=== PATIENT | male | born 1935 | race Caucasian/White ===

== ENCOUNTER 2021-06-03 09:04 | Day surgery (SDC) | payer OTHER ==
[~2021-06-03] VITALS: Ht 180.3 cm; Wt 119.6 kg
[2021-06-03] MEDS ORDERED: VANCOMYCIN 1,500MG inj. 1,500 MG in normal saline 500ml IV soln 500 ML IV ONE (09:45)
[2021-06-03] MEDS ORDERED: BUPR300T86 PO (10:09)
[2021-06-03] MEDS ORDERED: ARMO150T6 PO (10:09)
[2021-06-03] MEDS ORDERED: EPLE25TA4 PO (10:09)
[2021-06-03] MEDS ORDERED: CITA40TA17 PO (10:09)
[2021-06-03] MEDS ORDERED: FLUT15.815 (10:09)
[2021-06-03] MEDS ORDERED: ATOR20TA PO (10:09)
[2021-06-03] MEDS ORDERED: WARF6TAB49 PO (10:09)
[2021-06-03] MEDS ORDERED: LIDOcaine 1% (10mg/ml)w/preservative injection 20ml MDV ONE (10:15)
[2021-06-03] MEDS ORDERED: vancomycin 1,000mg inj ONE (10:15)
[2021-06-03] MEDS ORDERED: fentaNYL/PF 50MCG/1 ML 2ML syringe ONE (10:15)
[2021-06-03] MEDS ORDERED: midazolam 1 mg/ML 2ml injection ONE ×2 (10:15→10:58)
[2021-06-03 10:20] LABS: BASOPHILS # (AUTO) 0.1 X10'3 (0-0.2); BASOPHILS % (AUTO) 0.8 % (0-1); EOSINOPHILS # (AUTO) 0.2 X10'3 (0-0.9); EOSINOPHILS % (AUTO) 3.9 % (0-6); HEMATOCRIT 43.8 % (42.0-52.0); HEMOGLOBIN 14.9 g/dl (14.0-17.9); LYMPHOCYTES # (AUTO) 1.4 X10'3 (1.1-4.8); LYMPHOCYTES % (AUTO) 22.1 % (21-51); MEAN CORPUSCULAR HEMOGLOBIN 32.5 PG (27.0-31.0); MEAN CORPUSCULAR HGB CONC 34.1 g/dL (33.0-36.5); MEAN CORPUSCULAR VOLUME 95.2 FL (78-98); MEAN PLATELET VOLUME 8.3 FL (7.4-10.4); MONOCYTES # (AUTO) 0.8 X10'3 (0-0.9); MONOCYTES % (AUTO) 12.3 % (2-12); NEUTROPHILS # (AUTO) 3.8 X10'3 (1.8-7.7); NEUTROPHILS % (AUTO) 60.9 % (42-75); PLATELET COUNT 171 X10'3 (140-440); RED CELL DISTRIBUTION WIDTH 14.6 % (11.5-14.5); WHITE BLOOD COUNT 6.2 X10'3 (4.5-11.0)
[2021-06-03 10:22] LABS: ALBUMIN 3.4 G/DL (3.4-5.0); ANION GAP 9 (8-16); BLOOD UREA NITROGEN 21 MG/DL (7-18); BUN/CREATININE RATIO 22.1 (5.4-32.0); CALCIUM 8.8 MG/DL (8.5-10.1); CHLORIDE 106 MMOL/L (99-107); CREATININE 0.95 MG/DL (0.60-1.10); GLUCOSE 118 MG/DL (70-104); MAGNESIUM 1.9 MG/DL (1.5-2.4); POTASSIUM 4.4 MMOL/L (3.5-5.1); SODIUM 144 MMOL/L (135-145); TOTAL CARBON DIOXIDE 28.6 MMOL/L (24-32); eGFR 76 ML/MIN
[2021-06-03] MEDS ORDERED: LIDOcaine 1% W/epiNEPHrine 1:100,000 20ml vial ONE (10:52)
[2021-06-03 11:48] VITALS: BP 142/65
[2021-06-03] MEDS ORDERED: normal saline 1000ml 1,000 ML IV SCH (12:05)
[2021-06-03 12:17] VITALS: BP 149/62
[2021-06-03 12:30] VITALS: BP 124/82
[2021-06-03 12:45] VITALS: BP 129/67
[2021-06-03 13:00] VITALS: BP 102/54
== END 2021-06-03 13:30 | disposition home or self-care (01) ==
LOC: SSTAY O 09:04
PROVIDERS: ATTEND Internal Medicine Cardiovascular Disease
DX: Z45.02 Encounter for adjustment and management of automatic implantable cardiac defibrillator (principal); I42.0 Dilated cardiomyopathy; I48.91 Unspecified atrial fibrillation; G47.30 Sleep apnea, unspecified; I48.20 Chronic atrial fibrillation, unspecified; Z79.01 Long term (current) use of anticoagulants; Z90.79 Acquired absence of other genital organ(s); Z98.890 Other specified postprocedural states; Z79.899 Other long term (current) drug therapy; Z80.49 Family history of malignant neoplasm of other genital organs; Z80.1 Family history of malignant neoplasm of trachea, bronchus and lung; Z88.8 Allergy status to other drugs, medicaments and biological substances
CPT/HCPCS: 33264; 36415; 80048; 83735; 85025; 85610; 93005; 99152; 99153; C1882; C1894; J2001; J2250; J3010; J3370; J7030; A4620; A6258

== ENCOUNTER 2022-02-17 07:18 | Day surgery (SDC) | payer OTHER ==
[~2022-02-17] VITALS: Ht 177.8 cm; Wt 122.1 kg
[2022-02-17] VITALS (7 sets, daily range): BP systolic 131–157; BP diastolic 63–83
[~2022-02-17 07:18] MED LIST: ARMO150T6 PO; ATOR20TA PO; BUPR300T86 PO; CITA40TA17 PO; EPLE25TA4 PO; FLUT15.815; WARF6TAB49 PO
[2022-02-17] MEDS ORDERED: cefazolin/dext.iso 2gm/100ml 100 ML IV ONE (07:40)
[2022-02-17] MEDS ORDERED: LOTE5DRO4 (08:10)
[2022-02-17] MEDS ORDERED: WARF-55 PO (08:10)
[2022-02-17] MEDS ORDERED: SOLR150T PO (08:14)
[2022-02-17 08:35] LABS: BASOPHILS # (AUTO) 0.1 X10'3 (0-0.2); BASOPHILS % (AUTO) 0.9 % (0-1); EOSINOPHILS # (AUTO) 0.2 X10'3 (0-0.9); EOSINOPHILS % (AUTO) 2.9 % (0-6); HEMATOCRIT 42.3 % (42.0-52.0); HEMOGLOBIN 14.3 g/dl (14.0-17.9); LYMPHOCYTES # (AUTO) 1.5 X10'3 (1.1-4.8); LYMPHOCYTES % (AUTO) 23.3 % (21-51); MEAN CORPUSCULAR HEMOGLOBIN 33.3 PG (27.0-31.0); MEAN CORPUSCULAR HGB CONC 33.8 g/dL (33.0-36.5); MEAN CORPUSCULAR VOLUME 98.4 FL (78-98); MEAN PLATELET VOLUME 8.8 FL (7.4-10.4); MONOCYTES # (AUTO) 0.9 X10'3 (0-0.9); MONOCYTES % (AUTO) 12.9 % (2-12); PLATELET COUNT 183 X10'3 (140-440); RED CELL DISTRIBUTION WIDTH 13.8 % (11.5-14.5); WHITE BLOOD COUNT 6.6 X10'3 (4.5-11.0)
[2022-02-17 08:46] LABS: ALBUMIN 3.6 G/DL (3.4-5.0); ANION GAP 6 (8-16); BLOOD UREA NITROGEN 23 MG/DL (7-18); BUN/CREATININE RATIO 25.3 (5.4-32.0); CHLORIDE 108 MMOL/L (99-107); CREATININE 0.91 MG/DL (0.60-1.10); GLUCOSE 103 MG/DL (70-104); MAGNESIUM 1.9 MG/DL (1.5-2.4); SODIUM 143 MMOL/L (135-145); TOTAL CARBON DIOXIDE 28.7 MMOL/L (24-32); eGFR 79 ML/MIN
[2022-02-17] MEDS ORDERED: fentaNYL/PF 50MCG/1 ML 2ML syringe ONE (09:00)
[2022-02-17] MEDS ORDERED: midazolam 1 mg/ML 2ml injection ONE ×2 (09:00→09:46)
[2022-02-17] MEDS ORDERED: vancomycin 1,000mg inj ONE (09:01)
[2022-02-17] MEDS ORDERED: LIDOCAINE 2% w/EPI 1:100:000 30mL injection MDV**cath lab 1 only ONE (09:01)
[2022-02-17] MEDS ORDERED: iohexol 350MG/ML 100ml bottle IV ONE (09:01)
[2022-02-17] MEDS ORDERED: normal saline 1000ml 1,000 ML IV SCH (10:35)
== END 2022-02-17 12:30 | disposition home or self-care (01) ==
LOC: SSTAY O 07:18
PROVIDERS: ATTEND Internal Medicine Cardiovascular Disease
DX: I82.B22 Chronic embolism and thrombosis of left subclavian vein (principal); I42.9 Cardiomyopathy, unspecified; Z95.0 Presence of cardiac pacemaker; I48.20 Chronic atrial fibrillation, unspecified; G47.30 Sleep apnea, unspecified; Z98.890 Other specified postprocedural states; Z79.01 Long term (current) use of anticoagulants; Z79.899 Other long term (current) drug therapy; Z88.8 Allergy status to other drugs, medicaments and biological substances
CPT/HCPCS: 36005; 36415; 75820; 80048; 83735; 85025; 85610; 93005; 93971; 99152; C1894; J2250; J3010; J3370; J3490; J7030; Q9967; 36215; A4620; A6258

== ENCOUNTER 2022-03-17 06:10 | Inpatient (IN) | payer OTHER ==
[2022-03-13 14:31] LABS: BASOPHILS % (AUTO) 0.3 % (0-1); EOSINOPHILS # (AUTO) 0.1 X10'3 (0-0.9); EOSINOPHILS % (AUTO) 2.2 % (0-6); LYMPHOCYTES # (AUTO) 1.1 X10'3 (1.1-4.8); LYMPHOCYTES % (AUTO) 17.8 % (21-51); MEAN CORPUSCULAR HGB CONC 33.7 g/dL (33.0-36.5); MEAN CORPUSCULAR VOLUME 100.9 FL (78-98); MEAN PLATELET VOLUME 8.5 FL (7.4-10.4); MONOCYTES # (AUTO) 0.7 X10'3 (0-0.9); MONOCYTES % (AUTO) 11.6 % (2-12); NEUTROPHILS # (AUTO) 4.1 X10'3 (1.8-7.7); NEUTROPHILS % (AUTO) 68.1 % (42-75); PRE OP HEMATOCRIT 42.8 % (42.0-52.0); PRE OP HEMOGLOBIN 14.4 g/dL (14.0-17.9); PRE OP PLATELET COUNT 156 X10'3 (140-440); RED BLOOD COUNT 4.25 X10'6 (4.70-6.10)
[2022-03-13 14:52] LABS: ALBUMIN 3.5 G/DL (3.4-5.0); ALKALINE PHOSPHATASE 72 IU/L (46-116); BLOOD UREA NITROGEN 25 MG/DL (7-18); BUN/CREATININE RATIO 28.7 (5.4-32.0); CALCIUM 8.6 MG/DL (8.5-10.1); CHLORIDE 109 MMOL/L (99-107); CREATININE 0.87 MG/DL (0.60-1.10); PRE OP ALT 37 U/L (30-65); PRE OP ANION GAP 6 (8-16); PRE OP AST 23 U/L (10-37); PRE OP BILIRUB, TOTAL 0.7 MG/DL (0.0-1.0); PRE OP GLUCOSE 114 MG/DL (70-104); PRE OP POTASSIUM 4.3 MMOL/L (3.4-5.1); PRE OP SODIUM 141 MMOL/L (135-145); TOTAL CARBON DIOXIDE 26.2 MMOL/L (24-32); TOTAL PROTEIN 6.9 G/DL (6.4-8.2); eGFR 83 ML/MIN
[2022-03-17] VITALS (18 sets, daily range): BP systolic 132–149; BP diastolic 69–85
[~2022-03-17] VITALS: Ht 180.3 cm; Wt 121.0 kg
[~2022-03-17 06:10] MED LIST changes: -ARMO150T6 PO; -EPLE25TA4 PO; -FLUT15.815; +SOLR150T PO; +WARF-55 PO; -WARF6TAB49 PO; +ceFAZolin inj. 2,000 MG in dextrose 5%-water 100 ML IV ONE; +famotidine 20mg tablet PO ONE; +mupirocin 2% nasal ointment 1gm UD NS ONE; +ringers solution, lacted 1,000 ML IV SCH
[2022-03-17] MEDS ORDERED: LIDOcaine 1% (10mg/ml) 2ml vial ONE (06:25)
[2022-03-17] MEDS ORDERED: BUPIVAcaine/PF 2.5mg/ml (0.25%) 10ml vial ONE (06:47)
[2022-03-17 07:27] LABS: PRE OP PARTIAL THROMB. TIME 27 SECONDS (22-32)
[2022-03-17] MEDS ORDERED: desflurane 240ml liquid inh. IH ONE (07:48)
[2022-03-17] MEDS ORDERED: glycopyrrolate 0.2mg/ml inj ONE (07:48)
[2022-03-17] MEDS ORDERED: acetaminophen 1000 MG/100ml vial IV ONE (07:48)
[2022-03-17] MEDS ORDERED: ondansetron/PF 4mg/2ml inj ONE (07:48)
[2022-03-17] MEDS ORDERED: neostigmine methylsulfate 1 MG/ML 10ml vial ONE (07:48)
[2022-03-17] MEDS ORDERED: rocuronium 10mg/ml inj IV ONE ×2 (07:48→08:29)
[2022-03-17] MEDS ORDERED: midazolam 1 mg/ML 2ml injection ONE (07:52)
[2022-03-17] MEDS ORDERED: fentaNYL /PF 50mcg/ml 5ml ampule ONE (07:52)
[2022-03-17] MEDS ORDERED: ePHEDrine 50MG/ML INJ. ONE (08:28)
[2022-03-17] MEDS ORDERED: etomidate 2mg/ml inj. ONE (08:29)
[2022-03-17] MEDS ORDERED: NORMAL SALINE IV STA (08:54)
[2022-03-17] MEDS ORDERED: VANCOMYCIN IV STA (08:54)
[2022-03-17] MEDS ORDERED: LIDOcaine 1%/PF 5ML 10 MG/ML VIAL ONE ×2 (08:56)
[2022-03-17] MEDS ORDERED: ceFAZolin 1000mg inj IR ONE (09:23)
[2022-03-17] MEDS ORDERED: ceFAZolin 1000mg inj ONE (09:37)
[2022-03-17] MEDS ORDERED: dexamethasone sod phosphate 4mg/ml inj. ONE (09:42)
[2022-03-17] MEDS ORDERED: sugammadex 200mg/2ml injection IV ONE (09:44)
[2022-03-17] MEDS ORDERED: magnesium hydroxide 30ml (MOM) UD suspension PO PRN (09:50)
[2022-03-17] MEDS ORDERED: morphine 4 MG/ML inj SYRINge IV PRN (09:50)
[2022-03-17] MEDS ORDERED: HYDROcodone/acetaminophen 10/325mg tab PO PRN ×2 (09:50)
[2022-03-17] MEDS ORDERED: ondansetron/PF 4mg/2ml inj IV PRN (09:50)
[2022-03-17] MEDS ORDERED: albuterol 2.5 MG/3 ML nebule NEB PRN (09:50)
[2022-03-17] MEDS ORDERED: morphine 2 MG/ML inj. syringe IV PRN (09:50)
[2022-03-17] MEDS ORDERED: metoclopramide 5 mg/ml inj IV PRN (09:50)
--- NOTE | 2022-03-17 10:05 | NUR ---
Received from OR via , accompanied by Anesthesiologist and report given by Anesthesiolgist. PATIENT A&OX4, DENIES PAIN, V/S WNL, SCD ON , PIV 20G RUE AND ART LINE, DERMABONDED AND STERI STRIP TO CHEST SURGICAL SITES CLOSED CDI T
--- NOTE | 2022-03-17 10:55 | NUR ---
PATIENT A&OX4, DENIES PAIN, V/S WNL, SCD ON ,CL RIJ, PIV 20G RUE AND ART LINE D/C, DERMABONDED AND STERI STRIP TO CHEST SURGICAL SITES CLOSED CDI. PATIENT TAKEN TO 3012A WITH ALL BELONGINGS AND HOOKED UP TO MONITORS IN ROOM AND TELE AND REPORT GIVEN TO ALTERATIONS SUPERVISOR WHO HAS TAKEN OVER PATIENT CARE.
[2022-03-17] MEDS: ceFAZolin inj. 1,000 MG in dextrose 5%-water 50ml 50 ML IV SCH (17:25)
--- NOTE | 2022-03-17 18:04 | NUR ---
Pt refused 1700 BG check - education provided. Pt understood
[2022-03-17] MEDS: docusate sod 100mg capsule PO SCH (20:37)
[2022-03-17] MEDS: gabapentin 300mg capsule PO SCH (20:37)
[2022-03-17] MEDS: buPROPion SR 150mg tablet PO SCH (20:37)
[2022-03-17] MEDS ORDERED: atorvastatin 20mg tablet PO SCH (21:00)
[2022-03-17] MEDS ORDERED: citalopram 20mg tablet PO SCH (21:00)
[2022-03-17] MEDS ORDERED: warfarin 5mg tablet PO SCH (21:00)
[2022-03-18] MEDS: ceFAZolin inj. 1,000 MG in dextrose 5%-water 50ml 50 ML IV SCH (00:22)
[2022-03-18 02:00] VITALS: BP 136/67
[2022-03-18 06:00] VITALS: BP 145/65
--- NOTE | 2022-03-18 06:00 | NUR ---
Patient in room PCU 3013. I have received report from BHAVANI Rausch and had the opportunity to ask questions and assume patient care.
[2022-03-18 06:17] LABS: BASOPHILS % (AUTO) 0.2 % (0-1); EOSINOPHILS % (AUTO) 0 % (0-6); HEMATOCRIT 41.1 % (42.0-52.0); LYMPHOCYTES # (AUTO) 0.6 X10'3 (1.1-4.8); LYMPHOCYTES % (AUTO) 5.6 % (21-51); MEAN CORPUSCULAR HEMOGLOBIN 33.9 PG (27.0-31.0); MEAN CORPUSCULAR VOLUME 99.7 FL (78-98); MEAN PLATELET VOLUME 9.4 FL (7.4-10.4); MONOCYTES # (AUTO) 0.9 X10'3 (0-0.9); MONOCYTES % (AUTO) 7.7 % (2-12); NEUTROPHILS # (AUTO) 9.8 X10'3 (1.8-7.7); NEUTROPHILS % (AUTO) 86.5 % (42-75); PLATELET COUNT 164 X10'3 (140-440); RED BLOOD COUNT 4.12 X10'6 (4.70-6.10); WHITE BLOOD COUNT 11.3 X10'3 (4.5-11.0)
[2022-03-18 06:19] LABS: ALANINE AMINOTRANSFERASE 36 U/L (12-78); ALBUMIN 3.2 G/DL (3.4-5.0); ALBUMIN/GLOBULIN RATIO 0.9 (1.1-1.5); ALKALINE PHOSPHATASE 69 IU/L (46-116); ANION GAP 8 (8-16); ASPARTATE AMINO TRANSFERASE 24 U/L (10-37); BILIRUBIN,TOTAL 0.8 MG/DL (0.1-1.0); BLOOD UREA NITROGEN 19 MG/DL (7-18); BUN/CREATININE RATIO 16.8 (5.4-32.0); CALCIUM 8.8 MG/DL (8.5-10.1); CHLORIDE 106 MMOL/L (99-107); CREATININE 1.13 MG/DL (0.60-1.10); GLUCOSE 178 MG/DL (70-104); POTASSIUM 4.9 MMOL/L (3.5-5.1); SODIUM 139 MMOL/L (135-145); TOTAL CARBON DIOXIDE 25.3 MMOL/L (24-32); TOTAL PROTEIN 6.6 G/DL (6.4-8.2); eGFR 62 ML/MIN
[2022-03-18] MEDS ORDERED: SOLRIAMFETOL HCL 150 MG PO SCH (08:00)
[2022-03-18] MEDS ORDERED: HYDR-3972 PO (08:22)
[2022-03-18] MEDS ORDERED: furosemide 40mg/4ml inj IV ONE (08:30)
[2022-03-18] MEDS: docusate sod 100mg capsule PO SCH (08:59)
[2022-03-18] MEDS: gabapentin 300mg capsule PO SCH (08:59)
[2022-03-18] MEDS: buPROPion SR 150mg tablet PO SCH (08:59)
[2022-03-18 11:00] VITALS: BP 124/79
--- NOTE | 2022-03-18 12:30 | NUR ---
Orientee documentation: I have reviewed and agree with all interventions, assessments performed and documented by BHAVANI Mao.
--- NOTE | 2022-03-18 12:37 | NUR ---
Pt stable for dc per MD orders. DC paperwork reviewed with pt and daughter, verbalized understanding. Telemonitor removed and returned, PIV and IJ removed, belongings sent home with pt. L chest wound CDI, no signs of infection, pt on sling L arm. Pt wheeled down to main entrance via wheelchair by this RN. Pt in no signs of acute distress.
== END 2022-03-18 12:25 | disposition home or self-care (01) | DRG 265 ==
LOC: PAS 06:10 → PCU 3S 09:53
PROVIDERS: ADMIT Thoracic Surgery (Cardiothoracic Vascular Surgery); ATTEND Thoracic Surgery (Cardiothoracic Vascular Surgery)
PROC: 02PA0MZ Removal of Cardiac Lead from Heart, Open Approach (ICD-10-PCS; 2022-03-17)
PROC: 5A09357 Assistance with Respiratory Ventilation, Less than 24 Consecutive Hours, Continuous Positive Airway Pressure (ICD-10-PCS; 2022-03-17)
PROC: 05HM33Z Insertion of Infusion Device into Right Internal Jugular Vein, Percutaneous Approach (ICD-10-PCS; 2022-03-17)
PROC: B543ZZA Ultrasonography of Right Jugular Veins, Guidance (ICD-10-PCS; 2022-03-17)
PROC: 02HL0KZ Insertion of Defibrillator Lead into Left Ventricle, Open Approach (ICD-10-PCS; principal; 2022-03-17 07:48)
PROC: 5A09357 Assistance with Respiratory Ventilation, Less than 24 Consecutive Hours, Continuous Positive Airway Pressure (ICD-10-PCS; 2022-03-18)
DX: T82.190A Other mechanical complication of cardiac electrode, initial encounter (principal); I42.0 Dilated cardiomyopathy; I48.20 Chronic atrial fibrillation, unspecified; F32.A Depression, unspecified; I11.0 Hypertensive heart disease with heart failure; I49.5 Sick sinus syndrome; E66.9 Obesity, unspecified; G47.33 Obstructive sleep apnea (adult) (pediatric); I50.9 Heart failure, unspecified; Y71.2 Prosthetic and other implants, materials and accessory cardiovascular devices associated with adverse incidents; Y92.89 Other specified places as the place of occurrence of the external cause; Z79.01 Long term (current) use of anticoagulants; Z68.37 Body mass index [BMI] 37.0-37.9, adult
CPT/HCPCS: Z7506; Z7508; 36415; 71045; 80053; 82948; 85025; 85610; 85730; 87081; A4215; A4565; A4615; A4618; A6250; A6258; A6449; A7000; G0378; J0131; J0690; J1100; J1940; J2250; J2405; J2710; J3010; J3370; J3490; J7050; J7060; J7120

== ENCOUNTER 2023-02-16 09:35 | Day surgery (SDC) | payer OTHER ==
[~2023-02-16] VITALS: Ht 180.3 cm; Wt 119.9 kg
[2023-02-16] VITALS (9 sets, daily range): BP systolic 130–169; BP diastolic 52–80
[~2023-02-16 09:35] MED LIST changes: +HYDR-3972 PO; -ceFAZolin inj. 2,000 MG in dextrose 5%-water 100 ML IV ONE; -famotidine 20mg tablet PO ONE; -mupirocin 2% nasal ointment 1gm UD NS ONE; -ringers solution, lacted 1,000 ML IV SCH
[2023-02-16] MEDS ORDERED: normal saline 1,000 ML IV SCH (10:00)
[2023-02-16] MEDS ORDERED: diphenhydrAMINE 25mg capsule PO PRN (10:00)
[2023-02-16] MEDS ORDERED: LOTE5DRO4 EACHEYE (10:18)
[2023-02-16] MEDS ORDERED: METO-395 PO (10:18)
[2023-02-16 10:32] LABS: BASOPHILS % (AUTO) 0.5 % (0-1); EOSINOPHILS # (AUTO) 0.2 X10'3 (0-0.9); EOSINOPHILS % (AUTO) 2.7 % (0-6); HEMATOCRIT 47.5 % (42.0-52.0); HEMOGLOBIN 15.9 g/dl (14.0-17.9); LYMPHOCYTES # (AUTO) 1.4 X10'3 (1.1-4.8); LYMPHOCYTES % (AUTO) 22.3 % (21-51); MEAN CORPUSCULAR HEMOGLOBIN 33.6 PG (27.0-31.0); MEAN CORPUSCULAR HGB CONC 33.5 g/dL (33.0-36.5); MEAN CORPUSCULAR VOLUME 100.5 FL (78-98); MEAN PLATELET VOLUME 8.8 FL (7.4-10.4); MONOCYTES # (AUTO) 0.7 X10'3 (0-0.9); MONOCYTES % (AUTO) 11.6 % (2-12); NEUTROPHILS % (AUTO) 62.9 % (42-75); PLATELET COUNT 156 X10'3 (140-440); RED BLOOD COUNT 4.72 X10'6 (4.70-6.10); RED CELL DISTRIBUTION WIDTH 14.3 % (11.5-14.5); WHITE BLOOD COUNT 6.4 X10'3 (4.5-11.0)
[2023-02-16 10:44] LABS: ALBUMIN 3.9 G/DL (3.4-5.0); ANION GAP 11 (8-16); BLOOD UREA NITROGEN 18 MG/DL (7-18); BUN/CREATININE RATIO 17.1 (10.0-20.0); CALCIUM 8.7 MG/DL (8.5-10.1); CHLORIDE 106 MMOL/L (99-107); CREATININE 1.05 MG/DL (0.60-1.10); GLUCOSE 107 MG/DL (70-104); MAGNESIUM 1.8 MG/DL (1.5-2.4); POTASSIUM 4.1 MMOL/L (3.5-5.1); SODIUM 144 MMOL/L (135-145); TOTAL CARBON DIOXIDE 26.7 MMOL/L (24-32); eGFR 67 ML/MIN
[2023-02-16] MEDS ORDERED: verapamil 2.5 mg/ml inj IV ONE (12:54)
[2023-02-16] MEDS ORDERED: fentaNYL/PF 50MCG/1 ML 2ML syringe ONE (12:54)
[2023-02-16] MEDS ORDERED: heparin 1,000unit/ml 10ml vial 10 ML ONE (12:54)
[2023-02-16] MEDS ORDERED: LIDOcaine 1% 30ml preserv. free vial ONE (12:54)
[2023-02-16] MEDS ORDERED: nitroGLYCERIN-Tridil 50MG/D5W 250 ML IV ONE (12:54)
[2023-02-16] MEDS ORDERED: midazolam 1 mg/ML 2ml injection ONE (12:54)
[2023-02-16] MEDS ORDERED: iohexol 350MG/ML 100ml bottle IV ONE ×3 (12:55→14:27)
[2023-02-16] MEDS ORDERED: iohexol 350 MG/ML 50ML vial IV ONE (14:09)
[2023-02-16] MEDS ORDERED: LIDOcaine 1% (10mg/ml)w/preservative inj. 20ml MDV ONE (14:15)
[2023-02-16] MEDS ORDERED: normal saline 1000ml 1,000 ML IV SCH (15:20)
[2023-02-16] MEDS ORDERED: ondansetron/PF 4mg/2ml inj IV PRN (15:20)
[2023-02-16] MEDS ORDERED: HYDROcodone/acetaminophen 10/325mg tab PO PRN (15:20)
[2023-02-16] MEDS ORDERED: HYDROcodone/acetaminophen 5mg/325mg tablet PO PRN (15:20)
[2023-02-16] MEDS ORDERED: proCHLORperazine 10 MG/2 ml inj IV PRN (15:20)
== END 2023-02-16 18:25 | disposition home or self-care (01) ==
LOC: SSTAY O 09:35
PROVIDERS: ATTEND Internal Medicine Cardiovascular Disease
DX: I42.0 Dilated cardiomyopathy (principal); I25.10 Atherosclerotic heart disease of native coronary artery without angina pectoris; I48.20 Chronic atrial fibrillation, unspecified; I10 Essential (primary) hypertension; E78.5 Hyperlipidemia, unspecified; E11.9 Type 2 diabetes mellitus without complications; Z79.899 Other long term (current) drug therapy; Z79.01 Long term (current) use of anticoagulants
CPT/HCPCS: 36415; 80048; 83735; 85025; 85610; 93005; 93458; 93567; 99152; 99153; A6258; C1751; J1644; J2250; J3010; J3490; J7030; Q0163; Q9967; A6402; C1760; C1894

== ENCOUNTER 2025-02-06 08:08 | Day surgery (SDC) | payer OTHER ==
[~2025-02-06] VITALS: Ht 177.8 cm; Wt 118.8 kg
[2025-02-06] VITALS (12 sets, daily range): BP systolic 116–160; BP diastolic 58–80; PULSE 60–84; RESP 11–15; TEMP 97.8; O2SAT 93–100
[~2025-02-06 08:08] MED LIST changes: +BUPR-480 PO; -BUPR300T86 PO; -HYDR-3972 PO; +LOTE5DRO4 EACHEYE; +METO-395 PO
--- NOTE | 2025-02-06 08:49 | ELECTROCARDIOGRAPH REPORT ---
[facility] Test Date: 2025-02-06 Test Time: 08:45:05 Pat Name: DAVONTE TREJO Department: [facility] O Patient ID: [facility]-[id number] Room: Gender: M Office Mover: RAVI : 1935 Requested By: BRANDI WARD Order Number: [id number] Reading MD: Dr. KEILA Pacheco Measurements Intervals [place] Rate: 72 P: 0 FL: 68 QRS: 127 QRSD: 145 T: 117 QT: 444 QTc: 486 Interpretive Statements Ventricular-paced complexes No further analysis attempted due to paced rhythm Electronically Signed On 02-10-2025 19:11:[address] KEILA Pacheco Please click the below link to view image of tracing.
[2025-02-06] MEDS ORDERED: POTA-208 PO (08:50)
[2025-02-06] MEDS ORDERED: ceFAZolin 2,000MG in D5W 50mL IV ONE (08:55)
[2025-02-06] MEDS ORDERED: vancomycin/NS 1 GM ADD-VANTAGE 250 ML IV ONE (08:55)
[2025-02-06] MEDS ORDERED: iohexol 350 MG/ML 50ML vial IV ONE (09:14)
[2025-02-06] MEDS ORDERED: midazolam 1 mg/ML 2ml injection ONE (09:14)
[2025-02-06] MEDS ORDERED: LIDOcaine 1% W/epiNEPHrine 1:100,000 20ml vial ONE ×2 (09:14→09:57)
[2025-02-06] MEDS ORDERED: fentaNYL/PF 50MCG/1 ML 2ML syringe ONE (09:14)
[2025-02-06] MEDS ORDERED: vancomycin 1,000mg inj ONE (09:14)
[2025-02-06] MEDS: vancomycin/NS 1 GM ADD-VANTAGE 250 ML X 1 DOSE IV ONE (09:25)
[2025-02-06 09:27] LABS: BASOPHILS % (AUTO) 0.8 % (0-1); EOSINOPHILS # (AUTO) 0.2 X10'3 (0-0.9); EOSINOPHILS % (AUTO) 2.5 % (0-6); HEMATOCRIT 42.2 % (42.0-52.0); HEMOGLOBIN 14.1 g/dl (14.0-17.9); LYMPHOCYTES # (AUTO) 1.4 X10'3 (1.1-4.8); LYMPHOCYTES % (AUTO) 23.4 % (21-51); MEAN CORPUSCULAR HEMOGLOBIN 32.7 PG (27.0-31.0); MEAN CORPUSCULAR HGB CONC 33.4 g/dL (33.0-36.5); MEAN CORPUSCULAR VOLUME 97.9 FL (78-98); MEAN PLATELET VOLUME 8.8 FL (7.4-10.4); MONOCYTES # (AUTO) 0.8 X10'3 (0-0.9); MONOCYTES % (AUTO) 12.6 % (2-12); NEUTROPHILS # (AUTO) 3.8 X10'3 (1.8-7.7); NEUTROPHILS % (AUTO) 60.7 % (42-75); PLATELET COUNT 174 X10'3 (140-440); RED BLOOD COUNT 4.31 X10'6 (4.70-6.10); WHITE BLOOD COUNT 6.2 X10'3 (4.5-11.0)
[2025-02-06 09:34] LABS: ALBUMIN 3.3 G/DL (3.4-5.0); ANION GAP 8 (8-16); BLOOD UREA NITROGEN 13 MG/DL (7-18); BUN/CREATININE RATIO 10.2 (10.0-20.0); CALCIUM 8.3 MG/DL (8.5-10.1); CHLORIDE 108 MMOL/L (99-107); CREATININE 1.28 MG/DL (0.60-1.10); GLUCOSE 118 MG/DL (70-104); MAGNESIUM 1.8 MG/DL (1.5-2.4); POTASSIUM 4.2 MMOL/L (3.5-5.1); SODIUM 143 MMOL/L (135-145); TOTAL CARBON DIOXIDE 26.9 MMOL/L (24-32); eCRCL 42 ML/MIN; eGFR 53 ML/MIN
[2025-02-06 09:36] LABS: INR 1.4 INR
[2025-02-06] MEDS ORDERED: HYDROmorphone 1 mg/ml syringe ONE (09:57)
[2025-02-06] MEDS ORDERED: normal saline 1000ml 1,000 ML IV SCH (11:10)
[2025-02-06] MEDS ORDERED: HYDROcodone/acetaminophen 10/325mg tab PO PRN (11:10)
[2025-02-06] MEDS ORDERED: LORazepam 1 MG tablet PO PRN (11:10)
[2025-02-06] MEDS ORDERED: HYDROcodone/acetaminophen 5mg/325mg tablet PO PRN (11:10)
--- NOTE | 2025-02-06 11:33 | CARDIOLOGY REPORT ---
DATE OF SERVICE: 02/06/2025 DICTATING PHYSICIAN: BRANDI WARD DO CARDIAC CATHETERIZATION REPORT REFERRING PHYSICIAN: Brandi Ward MD PREOPERATIVE DIAGNOSES: * Dilated cardiomyopathy. * Chronic atrial fibrillation. * Status post biventricular pacemaker/ICD (2011). * Pulse generator at the elective replacement interval. POSTOPERATIVE DIAGNOSES: * Dilated cardiomyopathy. * Chronic atrial fibrillation. * Status post biventricular pacemaker/ICD (2011). * Pulse generator at the elective replacement interval. PROCEDURES PERFORMED: * Removal of existing pacemaker pulse generator. * Pacemaker pocket revision. * Implant of new pacemaker pulse generator. * One-hour conscious sedation supervision. DESCRIPTION OF PROCEDURE: The patient was sedated with fentanyl and Versed. He was then prepared and draped in the usual manner. The left pectoral region was liberally infiltrated with 1% lidocaine. The pacer pocket was opened by incising around the existing scar line. The generator was removed. The pocket was then enlarged in an inferior direction. The new generator was attached to the existing electrodes, enclosed in a TYRX pouch and replaced in the pocket. The subcutaneous layer was then closed with six 2-0 Vicryl sutures. The subcutaneous layer was closed with 4-0 Monocryl and four 3-0 Monocryl retention sutures were placed externally. ESTIMATED BLOOD LOSS: 10 mL COMPLICATIONS: No complications. Initial jonathon parameters were as follows: Mode VVIR LRL 60 PPM, upper activity rate 120 BPM, upper tracking rate 130 BPM, paced AV delay 130 milliseconds, sensed AV delay 100 milliseconds. Right ventricular amplitude 2 volts, pulse width 0.4 milliseconds, sensitivity 0.3 millivolts. Left ventricular output 5 volts, pulse width 1.5 milliseconds. For the ventricular tachyarrhythmia management algorithms, please see the [employer] implant record. BRANDI WARD DO TID: [id number] RECEIPT: [id number] BRITANY/JAYNE
== END 2025-02-06 13:35 | disposition home or self-care (01) ==
LOC: SSTAY O 08:08
PROVIDERS: ATTEND Internal Medicine Cardiovascular Disease
DX: Z45.02 Encounter for adjustment and management of automatic implantable cardiac defibrillator (principal); I48.20 Chronic atrial fibrillation, unspecified; I42.0 Dilated cardiomyopathy; E83.110 Hereditary hemochromatosis; E78.5 Hyperlipidemia, unspecified; G47.30 Sleep apnea, unspecified; Z79.899 Other long term (current) drug therapy; Z98.890 Other specified postprocedural states; Z88.8 Allergy status to other drugs, medicaments and biological substances
CPT/HCPCS: 33264; 36415; 80048; 83735; 85025; 85610; 93005; 99152; 99153; C1882; J1171; J2250; J3010; J3370; J3490; J7030; 33229; A6258; A6449; Q9967